=== PATIENT | female | born 1980 | race Caucasian/White ===

== ENCOUNTER 2019-03-02 18:48 | Emergency (ER) | payer BC, SELFPAY ==
[2019-03-02 18:50] VITALS: BP 155/84; PULSE 87; RESP 17; TEMP 37.1; O2SAT 98; BMI 46.7
--- NOTE | 2019-03-02 18:58 | ED.RN ---
DR. MASSEY NOTIFIED OF PT SX ON TRIAGE. [place] ALSO NOTIFIED. PT PLACED ON TOWER DIRECTOR. WILL CONTINUE TO MONITOR.
--- NOTE | 2019-03-02 19:01 | EKG12_ITS ---
Test Reason : SOB Blood Pressure : / mmHG Vent. Rate : 080 BPM Atrial Rate : 080 BPM P-R Int : 134 ms QRS Dur : 084 ms QT Int : 388 ms P-R-T Axes : 032 037 017 degrees QTc Int : 447 ms Normal sinus rhythm Normal ECG Confirmed by ABENA ROACH, PAPI ([id number]), business editor RACQUEL MOLINA ([id number]) on 03/07/2019 11:55:44 AM Referred By: Confirmed By:KIMBERLEY KRAFT MD
--- NOTE | 2019-03-02 19:04 | RAD_ITS ---
STUDY: X-RAY CHEST REASON FOR EXAM: Female, 38 years old. Shortness of breath TECHNIQUE: Single frontal view of the chest. COMPARISON: None. FINDINGS: The lungs are clear and expanded. There is no demonstrated pleural abnormality. Normal size heart. Normal mediastinum and dasia. Normal visualized pulmonary arteries. Normal visualized aortic arch and descending thoracic aorta. Normal visualized thoracic spine. Normal visualized ribs, clavicles, and shoulders. There is no demonstrated abnormality of the visualized soft tissue structures of the upper abdomen. RAD/Chest 1 View (Portable) IMPRESSION: Normal x-ray examination of the chest. Electronically Signed: Bossman Matias MD at 19:21 EST , Service support ,
--- NOTE | 2019-03-02 19:04 | ED.VISSUMM ---
- ER Visit Summary Date of Service: 03/02/19 Chief Complaint: Shortness of breath History of Present Illness: The patient is a 38 F presenting with shortness of breath and fatigue. Patient states that she has been having vaginal bleeding since January 28. She states this is not atypical with her PCOS. She states on Thursday she had an episode of very heavy bleeding. She called her [employer]CHNICIAN today who called her in medication to stop the bleeding. She does not know what medication this is. She did not start the medication because the bleeding stopped. She denies syncope. She states she feels short of breath and fatigued. She denies chest pain. Denies fever. She also complains of gradual onset migraine headache. She has a history of migraine headaches and states this is not the worst headache of her life. She states she has had tingling right side of face. Denies other complaints. Physical Examination: Vitals are stable. Patient is afebrile. Alert no acute distress. HEENT exam is unremarkable. Neck is supple. Lungs are clear and equal bilaterally. Heart is regular rate and rhythm. Abdomen is soft nontender nondistended. Extremities are unremarkable. Skin is warm and dry. No focal neurologic deficit. Normal strength and sensation. Remainder of exam is unremarkable. Emergency Department Course and Treatment: Patient was given Tylenol. She declined other medications. EKG is sinus rhythm rate of 80 with no acute ischemic changes. CBC, chemistries unremarkable. D-dimer negative. hCG negative. Troponin is negative. Chest x-ray shows no acute process. Normal CTA Head and neck with contrast. On reevaluation, patient is feeling improved. She will follow-up with her primary care physician and her [employer]CHNICIAN. Advised return the ED for worsening complaints. Disposition: Discharge home Impression: Migraine, dyspnea This note was generated with [employer] dictation software. It may contain incorrect words, spelling, and punctuation that were not noted in review of the chart prior to signing ED Disposition - Plan for ED Patient: Instructions: HEADACHE, Unspecified Referrals: Anton Mora MD [Primary Care Provider] -
--- NOTE | 2019-03-02 19:04 | ED.RN ---
PT WITH HEADACHE ON RIGHT SIDE OF HEAD WITH NUMBNESS DOWN RIGHT CHEEK. PT CAN FEEL TOUCH ON TOUCH SIDES. SMILE IS EQUAL MAGDALENO. DR. MASSEY AWARE.
[2019-03-02] MEDS: 0.9% Normal Saline 1,000 ML 1000 ML IV (19:19)
[2019-03-02 19:30] LABS: Absolute Lymphocyte Count 2.85 X10^3/uL (0.83-4.51); Absolute Neutrophil Count 4.6 X10^3/uL (2.0-7.7); Basophil# 0.07 X10^3/uL; Basophil% 0.9 % (0-1); Eosinophil# 0.12 X10^3/uL; Eosinophils% 1.5 % (0-5); Hematocrit 41.5 % (37-47); Hemoglobin 13.5 g/dL (12.0-15.0); Lymphocyte # 2.85 X10^3/ul (4.0); Lymphocyte % 35.4 % (19-41); Mean Corp Hgb Conc 32.5 g/dL (32-36); Mean Corpuscular Hgb 27.2 pg (27.0-32.0); Mean Corpuscular Volume 83.5 fL (81-99); Mean Platelet Vol. 10.1 fl (6.2-12.0); Monocyte# 0.43 X10^3/uL; Monocyte% 5.3 % (0-10); NRBC Flagged by Analyzer 0 % (0-5); Neutrophil # 4.55 X10^3/uL (2.7-7.7); Neutrophil % 56.7 % (47-70); Platelet Count 278 K/mm3 (150-450); RBC Distribution Width CV 13.5 % (11.6-14.6); RBC Distribution Width SD 41.5 fl (35.1-43.9); Red Blood Count 4.97 M/mm3 (4.2-5.4)
[2019-03-02 19:38] LABS: Internal QC Validated? YES +Cl - CLEAR BKGD; Pregnancy, Serum, hCG Quali. NEGATIVE Negative
[2019-03-02 19:43] LABS: Anion Gap 7 (5-15); BUN 9 mg/dL (7-18); Calcium,Total 8.9 mg/dL (8.5-10.1); Chloride 109 mmol/L (98-107); Creatinine, Serum 0.82 mg/dL (0.55-1.02); EST Glomerular Filtration Rate 84 mL/min (>60); Est Glom Filt Rate - Afr Amer 101 mL/min (>60); Estimated Creatinine Clearance 75.01 ml/min; Glucose 123 mg/dL (74-106); Potassium 3.8 mmol/L (3.5-5.1); Sodium Level 143 mmol/L (136-145)
[2019-03-02 20:11] VITALS: BP 132/67; PULSE 92; RESP 24; O2SAT 98
[2019-03-02] MEDS: Acetaminophen 500 MG Tablet 1000 MG PO (20:25)
--- NOTE | 2019-03-02 20:42 | CT_ITS ---
STUDY: CTA HEAD AND NECK WITH CONTRAST REASON FOR EXAM: Female, 38 years old. Right-sided facial numbness and headache RADIATION DOSAGE (If Supplied By Facility): CTDIvol = ( 27.18 ) mGy, DLP = ( 1440.15 ) mGycm TECHNIQUE: CT angiography was performed with a multi-detector CT scanner. Data acquisition was obtained from the skull base through the vertex following intravenous administration of Isovue 370 100ml. MIP images were reconstructed from the axial data set. Post-processing of the angiographic images was performed, with multiplanar reformation and 3D reconstruction. Individualized dose optimization techniques were used for this CT. COMPARISON: No relevant priors. FINDINGS: Normal CT brain without contrast. Ventricles, cisterns, sulci normal. No evidence of hemorrhage. Normal bilateral petrous carotid arteries. Normal right cavernous carotid artery with a normal supraclinoid bifurcation. Normal left cavernous carotid artery with a normal supraclinoid bifurcation. Normal right A1 segments of the anterior cerebral artery. Normal left A1 segments of the anterior cerebral artery. Normal intact anterior communicating artery (ACOM). Normal bilateral A2 segments of the anterior cerebral arteries. Normal right M1 and M2 segments of the middle cerebral arteries, with a normal M1 bifurcation. Normal left M1 and M2 segments of the middle cerebral arteries, with a normal M1 bifurcation. There is non-visualization of the right posterior communicating artery (PCOM). There is non-visualization of the left posterior communicating artery (PCOM). Normal bilateral vertebral arteries. Normal basilar artery with a normal basilar bifurcation. The visualized bilateral superior cerebellar (SCA) arteries are normal. Normal bilateral P1, P2 and visualized P3 segments of the posterior cerebral arteries. There is no demonstrated aneurysm of the [place] of [place]. There is no demonstrated abnormality of the visualized brain. AORTIC ARCH: Normal visualized aortic arch. Normal origins of the brachiocephalic, left common carotid, and left subclavian arteries. RIGHT CAROTID ARTERIES: Normal right common carotid artery (CCA). Normal right common carotid bulb. Normal origin of the right internal carotid (ICA) artery without a hemodynamically significant stenosis. Normal visualized cervical portion of the right internal carotid artery. Normal origin of the right external carotid artery (ECA). LEFT CAROTID ARTERIES: Normal left common carotid artery (CCA). Normal left common carotid bulb. Normal origin of the left internal carotid (ICA) artery without a hemodynamically significant stenosis. Normal visualized cervical portion of the left internal carotid artery. Normal origin of the left external carotid artery (ECA). VERTEBRAL ARTERIES: Normal bilateral vertebral arteries. CT/CTA Head AND Neck W/ Contrast IMPRESSION: Normal CTA Head and neck with contrast. Electronically Signed: Bossman Matias MD at 21:26 EST , Service support ,
[2019-03-02 22:00] VITALS: BP 133/62; PULSE 85; RESP 18; O2SAT 96
--- NOTE | 2019-03-02 22:05 | ED.DEP ---
ED Disposition - Plan for ED Patient: Instructions: HEADACHE, Unspecified Referrals: Anton Mora MD [Primary Care Provider] -
[2019-03-02 22:09] VITALS: BP 133/62; PULSE 85; RESP 18; O2SAT 96
== END 2019-03-02 22:16 | disposition home or self-care (01) ==
LOC: ED 19:28
PROVIDERS: Emergency Provider Emergency Medicine; Family Provider Family Medicine; PCP Family Medicine
DX: G43.909 Migraine, unspecified, not intractable, without status migrainosus (principal); R06.00 Dyspnea, unspecified; E28.2 Polycystic ovarian syndrome; Z79.84 Long term (current) use of oral hypoglycemic drugs
CPT/HCPCS: 70496; 70498; 71045; 80048; 84484; 84703; 85025; 85379; 93005; 96360; 96361; 99285; J7030; Q9967; A4216